=== PATIENT | female | born 1980 | race Two or more races ===

== ENCOUNTER 2021-04-01 04:02 | Emergency (ER) | payer OTHER ==
[~2021-04-01] VITALS: Ht 162.6 cm; Wt 65.8 kg
[2021-04-01 06:36] VITALS: BP 113/71
== END 2021-04-01 10:33 | disposition home or self-care (01) ==
LOC: ER 04:02
DX: S40.012A Contusion of left shoulder, initial encounter (principal); S70.12XA Contusion of left thigh, initial encounter; V43.52XA Car driver injured in collision with other type car in traffic accident, initial encounter; Y93.89 Activity, other specified; Y92.488 Other paved roadways as the place of occurrence of the external cause; Y99.8 Other external cause status
CPT/HCPCS: 73030